=== PATIENT | female | born 1965 | race Caucasian/White ===

== ENCOUNTER 2017-07-01 15:44 | Outpatient (CLI) | payer BC, OTHER | END 2017-07-01 15:56 | disposition home or self-care (01) | LOC: HPC 15:44 | DX: K80.20 Calculus of gallbladder without cholecystitis without obstruction (principal); I10 Essential (primary) hypertension; E11.9 Type 2 diabetes mellitus without complications; R07.9 Chest pain, unspecified; M79.651 Pain in right thigh | CPT/HCPCS: G0463 ==